=== PATIENT | male | born 1995 | race Hispanic/Latino ===

== ENCOUNTER 2020-07-26 12:42 | Emergency (ER) | payer OTHER ==
[~2020-07-26] VITALS: Ht 160 cm; Wt 99.8 kg
[2020-07-26] MEDS ORDERED: TRAMADOL HCL 50 MG TAB PO STA (13:38)
[2020-07-26] MEDS ORDERED: TRAMADOL HCL 50 MG TAB ONE (14:12)
[2020-07-26] MEDS ORDERED: MOTRIN200 MG PO (15:07)
[2020-07-26] MEDS ORDERED: PREDNISONE20 MG PO (15:07)
[2020-07-26 15:09] VITALS: BP 119/77
== END 2020-07-26 15:15 | disposition home or self-care (01) ==
LOC: FSED 13:29
DX: M79.675 Pain in left toe(s) (principal); M10.9 Gout, unspecified; M25.471 Effusion, right ankle; F17.210 Nicotine dependence, cigarettes, uncomplicated
CPT/HCPCS: 99283